=== PATIENT | female | born 1990 | race Two or more races ===

== ENCOUNTER 2016-07-22 10:00 | Observation (INO) | payer MEDICAID ==
[~2016-07-22] VITALS: Ht 149.9 cm; Wt 79.4 kg
[2016-07-22] MEDS ORDERED: TERBUTALINE SULFATE 1 MG/ML 1ML VIAL SC ONE (11:45)
[2016-07-22 12:37] LABS: Urine RBC None Seen /hpf (0 - 4)
[2016-07-22 12:57] LABS: Urine Bilirubin Negative (Negative); Urine Blood Negative /uL (Negative); Urine Color Yellow (Yellow); Urine Glucose Normal (Normal); Urine Ketone Negative (Negative); Urine Nitrite Negative (Negative); Urine Squamous Epithelial Cell MOD /hpf (<5); Urine Urobilinogen Normal (Negative)
[2016-07-22 13:08] LABS: Basophils # (auto) 0 uL; Basophils % (auto) 0.3 % (0.0-2.0); Eosinophils # (auto) 0 uL; Eosinophils % (auto) 0.3 % (0.0-7.0); Hematocrit 37.2 % (36.0-46.0); Hemoglobin 12.4 g/dL (12.2-16.2); Lymphocytes # (auto) 2.1 uL; Lymphocytes % (auto) 22.2 % (10.0-50.0); Mean Corpuscular Hemoglobin 29.6 pg (28.0-32.0); Mean Corpuscular Hgb Conc. 33.2 g/dL (32.0-36.0); Mean Corpuscular Volume 89.2 fL (80.0-100.0); Mean Platelet Volume 8.6 fL (7.4-10.4); Monocytes # (auto) 0.4 uL; Monocytes % (auto) 3.9 % (0.0-12.0); Neutrophils % (auto) 73.3 % (37.0-80.0); Platelet Count (auto) 277 10^3/uL (140-450); Red Cell Distribution Width 13.7 % (11.6-16.0); White Blood Cell 9.6 10^3/uL (4.4-10.8)
[2016-07-22 13:22] LABS: Partial Thromboplastin Time 26.8 sec (22.64-33.71); Prothrombin Time 9.6 sec (9.37-12.3)
[2016-07-22 13:24] LABS: INR 0.89 (0.9-1.15)
[2016-07-22 13:42] LABS: Albumin 2.7 g/dL (3.4-5.0); BUN/Creatinine Ratio 4.1; Bilirubin, Total 0.3 mg/dL (0.2-1.0); Calcium 8.9 mg/dL (8.5-10.1); Potassium 3.1 mmol/L (3.5-5.1); Total Protein 7.2 g/dL (6.4-8.2)
== END 2016-07-22 13:45 | disposition home or self-care (01) | DRG 566 ==
LOC: INTOOBSV 10:00 → LDRP 10:00
PROVIDERS: ADMIT Obstetrics & Gynecology; ATTEND Obstetrics & Gynecology
DX: O26.893 Other specified pregnancy related conditions, third trimester (principal); R10.2 Pelvic and perineal pain; R10.9 Unspecified abdominal pain; Z3A.00 Weeks of gestation of pregnancy not specified
CPT/HCPCS: 36415; 59025; 80053; 81001; 81002; 85025; 85610; 85730; 86850; 86900; 86901; 96372; G0378; G0434; J3105

== ENCOUNTER 2016-07-25 08:10 | Observation (INO) | payer MEDICAID | END 2016-07-25 10:25 | disposition home or self-care (01) | DRG 566 | LOC: LDRP 08:10 | PROVIDERS: ADMIT Specialist; ATTEND Specialist | DX: O26.893 Other specified pregnancy related conditions, third trimester (principal); R10.2 Pelvic and perineal pain; Z3A.38 38 weeks gestation of pregnancy | CPT/HCPCS: 59025; 76818; 81002; G0378 ==